=== PATIENT | male | born 1970 | race American Indian/Alaskan Native ===

== ENCOUNTER 2018-04-05 18:33 | Inpatient (IN) | payer SELFPAY ==
--- NOTE | 2018-04-05 18:47 | Emergency Department Report ---
Blank Doc - Documentation Documentation: C/O chest pain, fever and generalized body aches. Started last night. Hx/o CVA times 8 and HTN. This initial assessment diagnostic orders/clinical plan/treatment (s) is/Are subject change based on patient's health status, clinical progression and re- assessment by fellow clinical providers in the ED. Further treatment and work-up at subsequent clinical providers discretion. Patient/guardians urged not to elope from their condition may be serious if not clinically assessed and managed. Initial order include:
[2018-04-05 19:01] LABS: Basophils % (Auto) 0.6 % (0.0-1.8); Eosinophils # (Auto) 0.1 K/mm3 (0.0-0.4); Eosinophils % (Auto) 0.8 % (0.0-4.3); Hematocrit 43.1 % (35.5-45.6); Hemoglobin 14.7 gm/dl (11.8-15.2); Lymphocytes % (Auto) 15.8 % (13.4-35.0); Mean Corpuscular HGB Conc 34 % (32-34); Mean Corpuscular Volume 90 fl (84-94); Monocytes # (Auto) 0.3 K/mm3 (0.0-0.8); Monocytes % (Auto) 4.6 % (0.0-7.3); Platelet Count 313 K/mm3 (140-440); Red Blood Count 4.79 M/mm3 (3.65-5.03); Red Cell Distribution Width 13.9 % (13.2-15.2)
[2018-04-05 19:16] LABS: Alanine Aminotransferase 18 units/L (7-56); Albumin 4.3 g/dL (3.9-5); BUN/Creatinine Ratio 8; Blood Urea Nitrogen 10 mg/dL (9-20); Calcium 9.7 mg/dL (8.4-10.2); Hemolysis Index 10
[2018-04-05] MEDS ORDERED: ASPIRIN PO ONE (19:31)
[2018-04-05] MEDS ORDERED: MORPHINE IV ONE (19:31)
--- NOTE | 2018-04-05 19:32 | Emergency Department Report ---
ED Chest Pain HPI - General Chief Complaint: Chest Pain Stated Complaint: CHEST PAIN/FEVER Time Seen by Provider: 04/05/18 19:20 Source: patient Mode of arrival: Ambulatory Limitations: No Limitations - History of Present Illness Initial Comments: Patient is a 47-year-old male that presents emergency room with complaints of chest pain 24 hours and cough 2 days and fever and body aches 2 days and upper respiratory symptoms 2 days. Patient states the chest pain is radiating to his left shoulder. Patient states chest pain is 10 on a 10. Patient states the pain is worse with exertion and better with rest. Patient has not taken any medications for his respiratory symptoms. Patient states she has a history of a strokes. MD Complaint: chest pain -: Sudden Onset: during rest Pain Location: substernal, left chest Pain Radiation: LUE Severity: severe Severity scale (0 -10): 10 Quality: sharp Consistency: constant Improves With: rest Worsens With: exertion Context: recent illness re: dyspnea. denies: nausea, vomting, diaphoresis Other Symptoms: cough, fever. denies: syncope, rash, acid taste in mouth, leg swelling, palpitations, burping Treatments Prior to Arrival: none Aspirin use within the Past 7 Days: (0) No - Related Data On Oral Contraceptives: No Home Medications Medication Instructions Recorded Confirmed Last Taken Aspirin [Aspirin TAB] 325 mg PO DAILY 04/05/18 04/05/18 Unknown Bictegrav/Emtricit/Tenofov Ala 1 each PO DAILY 04/05/18 04/05/18 Unknown [Biktarvy 50-200-25 mg (Nf)] Allergies Allergy/AdvReac Type Severity Reaction Status Date / Time No Known Allergies Allergy Verified 04/05/18 18:43 Heart Score - HEART Score History: Moderately suspicious EKG: Normal Age: 45-65 Risk factors: No known risk factors Troponin: < normal limit HEART Score: 2 ED Review of Systems ROS: Stated complaint: CHEST PAIN/FEVER Other details as noted in HPI Constitutional: fever. denies: chills Eyes: denies: eye pain, eye discharge, vision change ENT: denies: ear pain, throat pain Respiratory: cough. denies: shortness of breath, wheezing Cardiovascular: chest pain. denies: palpitations Endocrine: no symptoms reported Gastrointestinal: denies: abdominal pain, nausea, diarrhea Genitourinary: denies: urgency, dysuria Musculoskeletal: denies: back pain, joint swelling, arthralgia Skin: denies: rash, lesions Neurological: denies: headache, weakness, paresthesias Psychiatric: denies: anxiety, depression Hematological/Lymphatic: denies: easy bleeding, easy bruising ED Past Medical Hx - Past Medical History Previous Medical History?: Yes Hx CVA: Yes (times 8) Hx HIV: Yes - Surgical History Past Surgical History?: No Hx Appendectomy: Yes - Family History Family history: hypertension - Social History Smoking Status: Former Smoker Substance Use Type: None - Medications Home Medications: Home Medications Medication Instructions Recorded Confirmed Last Taken Type Aspirin [Aspirin TAB] 325 mg PO DAILY 04/05/18 04/05/18 Unknown History Bictegrav/Emtricit/Tenofov Ala 1 each PO DAILY 04/05/18 04/05/18 Unknown History [Biktarvy 50-200-25 mg (Nf)] ED Physical Exam - General Limitations: No Limitations General appearance: alert, in no apparent distress - Head Head exam: Present: atraumatic, normocephalic - Eye Eye exam: Present: normal appearance, PERRL, EOMI Pupils: Present: normal accommodation - ENT ENT exam: Present: mucous membranes moist, other (throat redness noted) - Neck Neck exam: Present: normal inspection, full ROM. Absent: tenderness, me ningismus - Respiratory Respiratory exam: Present: normal lung sounds bilaterally. Absent: respiratory distress, wheezes, rales, rhonchi - Cardiovascular Cardiovascular Exam: Present: regular rate, normal rhythm. Absent: systolic murmur, diastolic murmur, rubs, gallop - GI/Abdominal GI/Abdominal exam: Present: soft, normal bowel sounds - Rectal Rectal exam: Present: deferred - Extremities Exam Extremities exam: Present: normal inspection - Back Exam Back exam: Present: normal inspection - Neurological Exam Neurological exam: Present: alert, oriented X3 - Psychiatric Psychiatric exam: Present: normal affect, normal mood - Skin Skin exam: Present: warm, dry, intact, normal color. Absent: rash ED Course Vital Signs 04/05/18 04/05/18 04/05/18 18:43 19:46 21:42 Temperature 98.3 F 100.1 F H 98.7 F Pulse Rate 101 H 82 77 Respiratory 18 21 16 Rate Blood Pressure 124/94 Blood Pressure 143/93 133/88 [Right] O2 Sat by Pulse 100 96 97 Oximetry 04/05/18 04/05/18 21:49 22:51 Temperature Pulse Rate 90 78 Respiratory 16 14 Rate Blood Pressure Blood Pressure 140/90 [Right] O2 Sat by Pulse 98 Oximetry - Reevaluation(s) Reevaluation #1: Patient states his pain has improved. 04/05/18 20:23 Patient states his pain has resolved. Patient was admitted to the hospitalist service. Patient agrees with plan of care. Discussed all results patient. 04/05/18 22:26 - Consultations Consultation #1: Hospitalist consulted for admission. Hospitalist to admit patient and assume care of patient. 04/05/18 22:26 GIANNI score - Gianni Score Age > 65: (0) No Aspirin use within the Past 7 Days: (0) No 3 or more CAD Risk Factors: (0) No 2 or more Angina events in past 24 hrs: (1) Yes Known CAD with more than 50% Stenosis: (0) No Elevated Cardiac Markers: (0) No ST Deviation Greater than 0.5mm: (0) No GIANNI Score: 1 ED Medical Decision Making - Lab Data Result diagrams: 04/05/18 18:50 04/05/18 18:50 - EKG Data -: EKG Interpreted by Me EKG shows normal: sinus rhythm, axis, intervals, QRS complexes, ST-T waves Rate: normal - Radiology Data Radiology results: report reviewed, image reviewed interpreted by me: No acute findings on chest x-ray PROCEDURE: CT ANGIO CHEST TECHNIQUE: Computerized axial tomographic angiography of the chest and pulmonary arteries was performed after the IV injection of iodinated nonionic contrast. The image data was postprocessed using maximum intensity projection (MIP) and 2-dimensional multiplanar reformatted (MPR) techniques. The examination is specifically tailored to the evaluation of the pulmonary arteries per clinical request. Automated exposure control, adjustment of mA and/or kV according to patient size, or iterative reconstruction dose optimization techniques were utilized. CPT G9637, 34275 HISTORY: Shortness of breath R06.02, chest pain unspecified R07.9 , COMPARISONS: None . FINDINGS: Bilateral pulmonary arteries and their branches demonstrate normal enhancement without filling defects. Aorta is of normal caliber without evidence of dissection or aneurysm formation. Visualized thyroid demonstrates normal density. Minimally enlarged lymph node is noted in the aortopulmonic window. Mild right hilar and infrahilar lymphadenopathy is noted. Bilateral lungs and pleural spaces are clear. Vertebral height is normal. IMPRESSION: No evidence of pulmonary embolism Mild degree of right hilar and infrahilar lymphadenopathy. Minimal degree lymphadenopathy in the aortopulmonic window. No acute pulmonary process. - Medical Decision Making Patient is a 47-year-old male [facility] with upper respiratory infection symptoms and chest pain. Patient's fever and respiratory infection. Be secondary to a viral URI. Chest pain workup is negative so far. CTA is negative. Chest x-ray is negative. Labs on remarkable. - Differential Diagnosis chest pain. ACS. URI. Fever. Critical Care Time: Yes Critical care attestation.: If time is entered above; I have spent that time in minutes in the direct care of this critically ill patient, excluding procedure time. Critical Care Time: 35 minutes ED Disposition Clinical Impression: Cough Chest pain Qualifiers: Chest pain type: unspecified Qualified Code(s): R07.9 - Chest pain, unspecified Fever Qualifiers: Fever type: unspecified Qualified Code(s): R50.9 - Fever, unspecified URI (upper respiratory infection) Qualifiers: URI type: unspecified viral URI Qualified Code(s): J06.9 - Acute upper respiratory infection, unspecified Disposition: 09 OP ADMIT IP TO THIS HOSP Is pt being admited?: Yes Does the pt Need Aspirin: No Condition: Critical Time of Disposition: 22:24
[2018-04-05] MEDS ORDERED: NACL 0.9% 1000 ML 1,000 ML IV ONE (19:34)
[2018-04-05] MEDS ORDERED: ZOFRAN IV ONE (19:36)
--- NOTE | 2018-04-05 22:20 | Cat Scan Report ---
PROCEDURE: CT ANGIO CHEST TECHNIQUE: Computerized axial tomographic angiography of the chest and pulmonary arteries was perfor med after the IV injection of iodinated nonionic contrast. The image data was postprocessed using max imum intensity projection (MIP) and 2-dimensional multiplanar reformatted (MPR) techniques. The exami nation is specifically tailored to the evaluation of the pulmonary arteries per clinical request. Au tomated exposure control, adjustment of mA and/or kV according to patient size, or iterative reconstr uction dose optimization techniques were utilized. CPT G9637, 91889 HISTORY: Shortness of breath R06.02, chest pain unspecified R07.9 , COMPARISONS: None . FINDINGS: Bilateral pulmonary arteries and their branches demonstrate normal enhancement without filling defect s. Aorta is of normal caliber without evidence of dissection or aneurysm formation. Visualized thyroi d demonstrates normal density. Minimally enlarged lymph node is noted in the aortopulmonic window. Mi ld right hilar and infrahilar lymphadenopathy is noted. Bilateral lungs and pleural spaces are clear. Vertebral height is normal. IMPRESSION: No evidence of pulmonary embolism Mild degree of right hilar and infrahilar lymphadenopathy. Minimal degree lymphadenopathy in the aort opulmonic window. No acute pulmonary process. This document is electronically signed by Barak Newman MD., April 05 2018 10:17:29 PM ET
--- NOTE | 2018-04-05 23:20 | History and Physical Report ---
History of Present Illness Date of examination: 04/05/18 History of present illness: 47-year-old man with a history of CVA, hypertension, HIV comes emergency room with complaints of chest pain located in the epigastric area that started last night. He describes the pain as sharp, intermittent over 5 minutes, intensity 5/10, no radiation, cannot identify exacerbating or relieving factors. Admits to shortness of breath, no nausea vomiting, diaphoresis or palpitation. He had a stress testosterone which was negative Review of systems Constitutional: no weight loss, chills, fever Ears, eyes, nose, mouth and throat: no nasal congestion, no nasal discharge, no sinus pressure, no vision change, no red eye. Neck: No neck pain or rigidity. Cardiovascular: no palpitations, +chest pain Respiratory: no cough, + shortness of breath Gastrointestinal: no hematochezia, abdominal pain Genitourinary : no frequency , no hematuria Musculoskeletal: no joint swelling or muscle ache Integumentary: no rash, no pruritis Neurological: no parathesias, no focal weakness Endocrine: no cold or heat intolerance, no polyuria or polydipsia Hematologic/Lymphatic: no easy bruising, no easy bleeding, no gland swelling Allergic/Immunologic: no urticaria, no angioedema. PAST MEDICAL HISTORY: CVA, hypertension, HIV PAST SURGICAL HISTORY: None SOCIAL HISTORY: Denies alcohol, drugs, tobacco FAMILY HISTORY: Hypertension Medications and Allergies Allergies Allergy/AdvReac Type Severity Reaction Status Date / Time No Known Allergies Allergy Verified 04/05/18 18:43 Home Medications Medication Instructions Recorded Confirmed Last Taken Type Aspirin [Aspirin TAB] 325 mg PO DAILY 04/05/18 04/05/18 Unknown History Bictegrav/Emtricit/Tenofov Ala 1 each PO DAILY 04/05/18 04/05/18 Unknown History [Biktarvy 50-200-25 mg (Nf)] Famotidine [Pepcid] 20 mg PO BID #30 tablet 04/06/18 Unknown Rx Exam - Physical Exam Narrative exam: General Apperance: The patient lying in bed, breathing comfortable HEENT: Normocephalic, atraumatic. Pupils equally round and reactive to light, EOMI, no sclericterus or JVD or thyromegaly or nodule. , no carotid bruit, mucous membranes moist, no exudate or erythema Heart: S1-S2, regular is rhythm Lungs: Clear to auscultation bilaterally, breathing comfortable Abdomen: Positive bowel sounds, soft, nontender, nondistended, no organomegaly Extremities: No edema cyanosis clubbing Skin: no rash, nodule, warm and dry Neuro: cranial nerves 2-12 intact, speech is fluent, motor/sensory intact - Constitutional Vitals: Temp Pulse Resp BP Pulse Ox 98.7 F 78 14 140/90 98 04/05/18 21:42 04/05/18 22:51 04/05/18 22:51 04/05/18 22:51 04/05/18 22:51 Results - Labs CBC & Chem 7: 04/06/18 05:17 04/06/18 05:17 Labs: Abnormal lab results 04/05/18 04/05/18 Range/Units 18:50 18:50 Lymph # 1.0 L (1.2-5.4) K/mm3 Seg Neutrophils % 78.2 H (40.0-70.0) % Sodium 134 L (137-145) mmol/L Glucose 112 H (75-100) mg/dL - Imaging and Cardiology EKG: image reviewed Chest x-ray: report reviewed CT scan - chest: report reviewed Assessment and Plan Assessment Chest pain Hypertension HIV History of CVA Plan Admit to medicine Check cardiac enzymes, echo, consult cardiology IV morphine, IV azithromycin,aspirin, DVT prophylaxis Continue outpatient medication
[2018-04-05] MEDS ORDERED: TYLENOL PO PRN (23:59)
[2018-04-05] MEDS ORDERED: SODIUM CHLORIDE FLUSH SYRINGE 10 ML IV PRN (23:59)
[2018-04-05] MEDS ORDERED: ZOFRAN IV PRN (23:59)
[2018-04-06] MEDS ORDERED: MORPHINE IV PRN (00:04)
[2018-04-06] MEDS ORDERED: ZITHROMAX 500 MG in NACL 0.9% 250ML 250 ML IV SCH (00:33)
[2018-04-06 01:18] LABS: Creatine Kinase MB < 1.0 ng/mL (0.0-4.0)
[2018-04-06 06:11] LABS: Basophils % (Auto) 0.5 % (0.0-1.8); Eosinophils # (Auto) 0.1 K/mm3 (0.0-0.4); Eosinophils % (Auto) 1.8 % (0.0-4.3); Hematocrit 39.2 % (35.5-45.6); Hemoglobin 13.4 gm/dl (11.8-15.2); Lymphocytes % (Auto) 21.2 % (13.4-35.0); Mean Corpuscular HGB Conc 34 % (32-34); Mean Corpuscular Volume 91 fl (84-94); Monocytes # (Auto) 0.3 K/mm3 (0.0-0.8); Monocytes % (Auto) 7.1 % (0.0-7.3); Platelet Count 270 K/mm3 (140-440)
[2018-04-06 06:25] LABS: BUN/Creatinine Ratio 10; Blood Urea Nitrogen 11 mg/dL (9-20); Calcium 8.8 mg/dL (8.4-10.2); Hemolysis Index 16
[2018-04-06 06:40] LABS: Creatine Kinase MB < 1.0 ng/mL (0.0-4.0)
--- NOTE | 2018-04-06 09:37 | Consultation ---
Addendum entered and electronically signed by SUKI BEST MD 04/06/18 09:41: Atypical chest pain Negative Yani Normal ECG Non-specific mediastinal lymphadenopathy on CT chest History of multiple HYDRAULIC RIVETER strokes Proceed with lexiscan and echo Original Note: History of Present Illness Consult date: 04/06/18 Consult reason: chest pain History of present illness: Patient is a 47yr old male who gives a history of HIV, prior CVA on aspirin therapy. There is no prior cardiac history or recent cardiac workup. He presents to this hospital with complaints of chest pain. Cardiac consultation requested. Patient associates chest pain with fevers. He denies chills, coughs and congestion. There is no unusual shortness of breath or palpitations. Cardiac enzymes are normal and his ECG is benign, normal sinus rhythm. Past History Past Medical History: HIV/AIDS, other (CVA) Medications and Allergies Allergies Allergy/AdvReac Type Severity Reaction Status Date / Time No Known Allergies Allergy Verified 04/05/18 18:43 Home Medications Medication Instructions Recorded Confirmed Last Taken Type Aspirin [Aspirin TAB] 325 mg PO DAILY 04/05/18 04/05/18 Unknown History Bictegrav/Emtricit/Tenofov Ala 1 each PO DAILY 04/05/18 04/05/18 Unknown History [Biktarvy 50-200-25 mg (Nf)] Active Meds: Active Medications Acetaminophen (Tylenol) 650 mg PO Q4H PRN PRN Reason: Pain MILD(1-3)/Fever >100.5/REEVES Aspirin (Aspirin) 325 mg PO DAILY [facility] Enoxaparin Sodium (Lovenox) 40 mg SUB-Q QDAY@1000 [facility] Azithromycin 500 mg/ Sodium (Chloride) 250 mls @ 250 mls/hr IV Q24HR@2200 [facility]; Protocol Last Admin: 04/06/18 01:33 Dose: 250 mls/hr Documented by: Miscellaneous Medication (Bictegrav/Emtricit/Tenofov Ala) 1 each PO DAILY [facility] Morphine Sulfate (Morphine) 2 mg IV Q4H PRN PRN Reason: Pain, Moderate (4-6) Ondansetron HCl (Zofran) 4 mg IV Q4H PRN PRN Reason: Nausea And Vomiting Sodium Chloride (Sodium Chloride Flush Syringe 10 Ml) 10 ml IV BID [facility] Sodium Chloride (Sodium Chloride Flush Syringe 10 Ml) 10 ml IV PRN PRN PRN Reason: LINE FLUSH Physical Examination Vital Signs Temp Pulse Resp BP Pulse Ox 98.3 F 101 H 18 124/94 100 04/05/18 18:43 04/05/18 18:43 04/05/18 18:43 04/05/18 18:43 04/05/18 18:43 General appearance: no acute distress HEENT: Positive: PERRL Neck: Positive: trachea midline Cardiac: Positive: Reg Rate and Rhythm Lungs: Positive: Decreased Breath Sounds Neuro: Positive: Grossly Intact Extremities: Absent: edema Results 04/06/18 05:17 04/06/18 05:17 Cardiac Enzymes 04/05/18 04/06/18 04/06/18 Range/Units 18:50 00:32 05:17 AST 14 (5-40) units/L CK-MB (CK-2) < 1.0 < 1.0 (0.0-4.0) ng/mL CBC 04/05/18 04/06/18 Range/Units 18:50 05:17 WBC 6.4 4.6 (4.5-11.0) K/mm3 RBC 4.79 4.30 (3.65-5.03) M/mm3 Hgb 14.7 13.4 (11.8-15.2) gm/dl Hct 43.1 39.2 (35.5-45.6) % Plt Count 313 270 (140-440) K/mm3 Lymph # 1.0 L 1.0 L (1.2-5.4) K/mm3 [place] # 0.3 0.3 (0.0-0.8) K/mm3 Eos # 0.1 0.1 (0.0-0.4) K/mm3 Baso # 0.0 0.0 (0.0-0.1) K/mm3 Comprehensive Metabolic Panel 04/05/18 04/06/18 Range/Units 18:50 05:17 Sodium 134 L 134 L (137-145) mmol/L Potassium 3.9 4.1 (3.6-5.0) mmol/L Chloride 98.1 98.9 (98-107) mmol/L Carbon Dioxide 22 23 (22-30) mmol/L BUN 10 11 (9-20) mg/dL Creatinine 1.2 1.1 (0.8-1.5) mg/dL Glucose 112 H 100 (75-100) mg/dL Calcium 9.7 8.8 (8.4-10.2) mg/dL AST 14 (5-40) units/L ALT 18 (7-56) units/L Alkaline Phosphatase 68 (35-129) units/L Total Protein 8.1 (6.3-8.2) g/dL Albumin 4.3 (3.9-5) g/dL Assessment and Plan Chest pain normal cardiac enzymes normal ECG HIV status prior CVA per pt We will recommend a persantine thallium stress test and echocardiogram for further cardiac evaluation. This will be done today.
[2018-04-06] MEDS ORDERED: NON-FORMULARY (Bictegrav/Emtricit/Tenofov Ala 1 EACH) PO SCH (10:00)
[2018-04-06] MEDS ORDERED: ASPIRIN PO SCH (10:00)
[2018-04-06] MEDS ORDERED: SODIUM CHLORIDE FLUSH SYRINGE 10 ML IV SCH (10:00)
[2018-04-06] MEDS ORDERED: LOVENOX SUB-Q SCH ×2 (10:00)
[2018-04-06 12:50] VITALS: BP 127/85
--- NOTE | 2018-04-06 15:08 | Discharge Summary ---
Providers - Providers Date of Admission: 04/05/18 23:19 Date of discharge: 04/06/18 Attending physician: ELIZABETH VALERIO 04/06/18 00:04 Consult to Physician [CONS] Routine Comment: Consulting Provider: SUSANA CHERRY Physician Instructions: Reason For Exam: cp Primary care physician: ABNER LOVETT MD Hospitalization Condition: Fair Hospital course: Patient is 47-year-old with history of hypertension, stroke, HIV. He presented with chest pain. He was evaluated in Emergency Department. Cardiac enzymes were negative. Patient was admitted to rule out acute coronary syndrome. Stress test was negative. Patient had lymphadenopathy on CT Chest. I informed him of report, and discussed , recommednin follow up with PCP. Patient discharged home to follow as an outpatient. Chest pain due to GERD, noncardiac. Disposition: TO HOME OR SELFCARE - Discharge Diagnoses (1) Musculoskeletal chest pain Status: Acute (2) Chest pain Status: Acute Qualifiers: Chest pain type: unspecified Qualified Code(s): R07.9 - Chest pain, unspecified (3) HIV disease Status: Acute (4) History of stroke Status: Acute Core Measure Documentation - Palliative Care Palliative Care/ Comfort Measures: Not Applicable - Core Measures Any of the following diagnoses?: none Exam - Constitutional Vitals: Temp Pulse Resp BP Pulse Ox 98.2 F 76 18 127/85 96 04/06/18 12:00 04/06/18 12:00 04/06/18 12:00 04/06/18 12:00 04/06/18 12:00 Plan Activity: no restrictions Diet: low fat, low cholesterol, low salt Additional Instructions: 1.Follow up with PCP or Abner morris in 1 week. 2.Follow up with ID Physician in 1 week. 3.Lymphadenopathy on CXR to be followed by PCP. Follow up with: ABNER ROBLES MD [Primary Care Provider] - 7 Days Prescriptions: Famotidine [Pepcid] 20 mg PO BID #30 tablet
--- NOTE | 2018-04-06 19:26 | XRay Report ---
PROCEDURE: XR CHEST ROUTINE 2V HISTORY: Chest Pain FINDINGS: Frontal and lateral views the chest were acquired. The heart is normal in size. There is so me airspace disease inferior right hilum, which could represent pneumonia. The left lung appears amrik r. IMPRESSION: Right infrahilar airspace disease suspicious for pneumonia This document is electronically signed by Romaine Fulton MD., April 05 2018 09:02:24 PM ET
--- NOTE | 2018-04-06 20:45 | Treadmill Report ---
INDICATION: Chest pain. ORDERING PHYSICIAN: Jb Reyes MD FINDINGS: There is no scintigraphic evidence of myocardial ischemia. The left ventricle is normal in size. There is normal wall motion and wall thickening. The left ventricular ejection fraction is measured at 46%. CONCLUSION: Normal myocardial perfusion scan. Left ventricular ejection fraction measured at 46%. Clinical correlation with echocardiography is recommended. JOB# [id number] TIMUR/NHAN
== END 2018-04-06 16:07 | disposition home or self-care (01) | DRG 313 ==
LOC: ED 18:33 → 4A 23:19
PROVIDERS: ADMIT Internal Medicine; ATTEND Internal Medicine
DX: R07.89 Other chest pain (principal); B20 Human immunodeficiency virus [HIV] disease; J06.9 Acute upper respiratory infection, unspecified; Z79.82 Long term (current) use of aspirin; Z87.891 Personal history of nicotine dependence; Z82.49 Family history of ischemic heart disease and other diseases of the circulatory system; Z90.49 Acquired absence of other specified parts of digestive tract; Z86.73 Personal history of transient ischemic attack (TIA), and cerebral infarction without residual deficits
CPT/HCPCS: 36415; 71046; 71275; 78452; 80048; 80053; 82550; 82553; 83880; 84484; 85025; 93005; 93010; 93017; 93306; 96374; 96375; 99291; G0378; A9502; J0456; J1650; J2270; J2405; J7030; J7050; Q9967

== ENCOUNTER 2021-10-08 19:09 | Emergency (ER) | payer SELFPAY | END 2021-10-08 20:21 | disposition left against medical advice (07) | LOC: ED 19:09 | DX: R07.9 Chest pain, unspecified (principal); Z53.21 Procedure and treatment not carried out due to patient leaving prior to being seen by health care provider ==